=== PATIENT | male | born 1970 | race Caucasian/White ===

== ENCOUNTER 2019-02-19 07:37 | Emergency (ER) | payer BC ==
[2019-02-19 07:57] VITALS: BP 104/65
--- NOTE | 2019-02-19 09:14 | UC ---
Throat Pain/Nasal Jann HPI - HPI Summary HPI Summary: 49 yo male with raspy voice and mild URI symptoms x 3 days now with laryngitis no problem eating/drinking no fever no myalgias some non productive cough - History of Current Complaint Chief Complaint: UCGeneralIllness Stated Complaint: ST Time Seen by Provider: 02/19/19 09:13 Hx Obtained From: Patient Onset/Duration: Gradual Onset, Lasting Days Severity: Mild Pain Intensity: 0 Pain Scale Used: 0-10 Numeric Cough: Nonproductive Associated Signs & Symptoms: Negative: Dysphagia, FB Sensation, Drooling, Wheezing, Hoarseness, Sinus Discomfort, Nasal Discharge, Fever, Vomiting, Rash - Epiglottits Risk Factors Epiglottis Risk Factors: Negative - Allergies/Home Medications Allergies/Adverse Reactions: Allergies Allergy/AdvReac Type Severity Reaction Status Date / Time No Known Allergies Allergy Verified 02/19/19 07:57 PMH/Surg Hx/FS Hx/Imm Hx Previously Healthy: Yes - Surgical History Surgical History: Yes Surgery Procedure, Year, and Place: RIght ELISEO, 2011, [place]; Right Hand Nerve Repair, ~1996 - Family History Known Family History: Positive: Diabetes Negative: Respiratory Disease - Social History Alcohol Use: Occasionally Substance Use Type: None Smoking Status (MU): Never Smoked Tobacco - Immunization History Most Recent Influenza Vaccination: Not the 2016/2017 Season Review of Systems All Other Systems Reviewed And Are Negative: Yes Constitutional: Positive: Negative Skin: Positive: Negative Eyes: Positive: Negative ENT: Positive: Negative Respiratory: Positive: Negative Cardiovascular: Positive: Negative Gastrointestinal: Positive: Negative Genitourinary: Positive: Negative Motor: Positive: Negative Neurovascular: Positive: Negative Musculoskeletal: Positive: Negative Neurological: Positive: Negative Psychological: Positive: Negative Physical Exam Triage Information Reviewed: Yes Appearance: Well-Appearing, No Pain Distress, Well-Nourished Vital Signs: Initial Vital Signs Temp 98.1 F 02/19/19 07:53 Pulse 67 02/19/19 07:53 Resp 16 02/19/19 07:53 BP 104/65 02/19/19 07:53 Pulse Ox 100 02/19/19 07:53 Vital Signs Reviewed: Yes Eyes: Positive: Conjunctiva Clear ENT: Positive: Hearing grossly normal, Pharynx normal, Nasal congestion, TMs normal, Hoarse voice, Uvula midline. Negative: Nasal drainage, TM bulging, TM dull, TM red, Tonsillar swelling, Tonsillar exudate, Trismus, Muffled voice, Sinus tenderness Dental Exam: Normal Neck: Positive: Supple, Nontender, No Lymphadenopathy Respiratory: Positive: Lungs clear, Normal breath sounds, No respiratory distress, No accessory muscle use Cardiovascular: Positive: RRR, No Murmur Musculoskeletal: Positive: ROM Intact, No Edema Neurological: Positive: Alert Psychological Exam: Normal Skin Exam: Normal Throat Pain/Nasal Course/Dx - Differential Dx/Diagnosis Provider Diagnosis: Laryngitis Discharge ED - Sign-Out/Discharge Documenting (check all that apply): Patient Departure All imaging exams completed and their final reports reviewed: No Studies - Discharge Plan Condition: Stable Disposition: HOME Prescriptions: predniSONE TAB* [Deltasone 20 MG TAB*] 40 mg PO DAILY #4 tab Patient Education Materials: Laryngitis (ED) Referrals: No Primary Care Phys,NOPCP [Primary Care Provider] - [facility] [Outside] - If Needed Additional Instructions: recheck in 3-4 days if not better - Billing Disposition and Condition Condition: STABLE Disposition: Home
[2019-02-19] MEDS ORDERED: predniSONE TAB* 20 MG PO ONE (09:18)
== END 2019-02-19 09:31 | disposition home or self-care (01) ==
LOC: UCCORT 07:37
DX: J04.0 Acute laryngitis (principal); R09.81 Nasal congestion
CPT/HCPCS: 99212; G0463; J7512